=== PATIENT | male | born 1970 | race Caucasian/White ===

== ENCOUNTER 2019-04-22 18:00 | Inpatient (IN) | payer OTHER ==
[~2019-04-22] VITALS: Ht 172.7 cm; Wt 97.1 kg
[2019-04-22 18:13] VITALS: Ht 172.7 cm; Wt 97.1 kg
[2019-04-22 18:37] LABS: BASOPHIL % 0.5 % (0-2); PLATELET COUNT 211 x10^3mcL (130-400)
[2019-04-22 18:38] LABS: RED CELL DISTRIBUTION WIDTH 16.9 % (11.5-14.5)
[2019-04-22 18:41] LABS: CALCIUM 8.4 mg/dL (8.5-10.1); CARBON DIOXIDE 29.3 mmol/L (21-32); CHLORIDE SERUM 105 mmol/L (98-107); CREATININE SERUM 0.8 mg/dL (0.7-1.3); GFR1 > 60 mL/min; GLUCOSE SERUM 116 mg/dL (74-106); SODIUM SERUM 142 mmol/L (136-145)
[2019-04-22 18:53] LABS: ALBUMIN 4.1 g/dL (3.4-5.0); ALKALINE PHOSPHATASE 93 U/L (46-116); ALT/SGPT 36 U/L (16-63); AST/SGOT 27 U/L (15-37); BILIRUBIN TOTAL 0.4 mg/dL (0.20-1.00); TOTAL PROTEIN, SERUM 7.3 g/dL (6.4-8.2)
[2019-04-22 19:10] LABS: microscopic required? NO
[2019-04-22 19:24] LABS: UA SPECIFIC GRAVITY >=1.030 (1.005-1.035); urine erythrocyte NEGATIVE (NEGATIVE)
[2019-04-22 19:38] LABS: AMPHETAMINE QUAL UR NONE DETECTED (See below)
[2019-04-23 19:31] VITALS: BP 140/85
[2019-04-23 22:00] VITALS: BP 152/92
[2019-04-24 05:04] VITALS: BP 125/79
[2019-04-24 13:26] VITALS: BP 125/79
== END 2019-04-24 13:35 | disposition left against medical advice (07) | DRG 760 ==
LOC: ED 18:00 → MU 04-23 17:58
PROVIDERS: Emergency Medicine; ADMIT Family Medicine
DX: R45.1 Restlessness and agitation (principal); F11.90 Opioid use, unspecified, uncomplicated; F15.90 Other stimulant use, unspecified, uncomplicated; F41.8 Other specified anxiety disorders; F12.90 Cannabis use, unspecified, uncomplicated; F14.90 Cocaine use, unspecified, uncomplicated; F32.9 Major depressive disorder, single episode, unspecified; F41.9 Anxiety disorder, unspecified; Z59.0 Homelessness; Z68.32 Body mass index [BMI] 32.0-32.9, adult; Z88.8 Allergy status to other drugs, medicaments and biological substances
CPT/HCPCS: G0378; G0480